=== PATIENT | female | born 1990 | race Caucasian/White ===

== ENCOUNTER → 2017-10-22 | Outpatient (REF) | payer OTHER | LOC: M SFHCWAGY 16:18 | DX: Z12.4 Encounter for screening for malignant neoplasm of cervix (principal) | CPT/HCPCS: G0123 ==

== ENCOUNTER → 2020-03-01 | Outpatient (REF) | payer OTHER ==
[2020-03-01 17:36] LABS: HEMATOCRIT 41.3 % (36.0-47.0); HEMOGLOBIN 13.6 g/dl (12.0-15.5); MEAN CORPUSCULAR HEMOGLOBIN 29.1 pg (27.0-33.0); MEAN CORPUSCULAR HGB CONC 32.9 g/dl (32.0-36.5); MEAN CORPUSCULAR VOLUME 88.4 fl (80.0-96.0); PLATELET COUNT, AUTOMATED 293 10^3/uL (150-450); RED BLOOD COUNT 4.67 10^6/uL (4.00-5.40); WHITE BLOOD COUNT 13.3 10^3/uL (4.0-10.0)
[2020-03-01 20:27] LABS: HEPATITIS C VIRUS ABY INDEX 0.1 INDEX (<0.8); HIV 1&2 SCREEN CENTAUR NEGATIVE (NEGATIVE)
== END ==
LOC: M PLALAB 15:14
PROVIDERS: ATTEND Advanced Practice Midwife
DX: Z34.01 Encounter for supervision of normal first pregnancy, first trimester (principal)

== ENCOUNTER → 2020-04-13 | Outpatient (CLI) | payer OTHER ==
--- NOTE | 2020-04-13 18:35 | REP ---
INDICATION: ANATOMY COMPARISON: None. TECHNIQUE: Transabdominal obstetrical ultrasound with color Doppler evaluation. FINDINGS: Examination demonstrates a single live intrauterine in cephalic presentation. motion is identified by technologist. Placenta is noted posterior and grade 1 without evidence for placenta previa or abruption. Amniotic fluid volume is normal. Cervix measures 4.9 cm in length and appears closed. Gestational age by LMP 19 weeks 0 days with MARCO 09/07/2020. Gestational age by current measurements 19 weeks 1 day with MARCO 09/06/2020. FHR equals 142 beats per minute. BPD: 4.6 cm 19 weeks 6 days HC: 16.4 cm 19 weeks 1 day AC: 13.0 cm 18 weeks 4 days FL: 2.9 cm at 18 weeks 6 days HL: 2.9 cm 19 weeks 3 days HC/AC: 1.26 Estimated weight 257 grams (33rdpercentile). Anatomical assessment demonstrates normal structures including cranium, choroid plexus, cavum, cerebellum/posterior fossa, nose/lips, lungs, four-chamber heart/ventricular outflow tracts, stomach, cord insertion/three-vessel cord, kidneys/bladder, spine, and extremities. IMPRESSION: Single live intrauterine in cephalic presentation demonstrating appropriate estimated weight and growth. Limited evaluation of the facial profile and diaphragm. Remainder of the anatomical assessment is complete and normal. <Electronically signed by Don Erwin > 04/13/20 [id number]
== END ==
LOC: M WHC 13:03
PROVIDERS: ATTEND Advanced Practice Midwife
DX: Z34.02 Encounter for supervision of normal first pregnancy, second trimester (principal); Z3A.19 19 weeks gestation of pregnancy

== ENCOUNTER → 2020-05-18 | Outpatient (CLI) | payer OTHER ==
--- NOTE | 2020-05-18 16:25 | REP ---
INDICATION: F/U ANATOMY/MARCO 09/07/20 COMPARISON: 04/13/2020 TECHNIQUE: Transabdominal obstetrical ultrasound with color Doppler evaluation. FINDINGS: Examination demonstrates a single live intrauterine in cephalic presentation. motion is identified by technologist. Placenta is noted posterior and grade 0 without evidence for placenta previa or abruption. Amniotic fluid volume is normal. Cervix measures 4.0 cm in length and appears closed.. Gestational age by LMP 24 weeks 0 days with MACRO 09/07/2020. Gestational age by current measurements 24 weeks 1 day with MARCO 09/06/2020. FHR equals 147 beats per minute. Estimated weight 622 grams (29thpercentile). Anatomical assessment demonstrates normal structures including facial profile and diaphragm. IMPRESSION: Single live intrauterine in cephalic presentation demonstrating appropriate estimated weight and growth. In conjunction with prior examination anatomical assessment is complete and normal. <Electronically signed by Don Erwin > 05/18/20 1830
== END ==
LOC: M WHC 15:31
PROVIDERS: ATTEND Advanced Practice Midwife
DX: Z36.9 Encounter for antenatal screening, unspecified (principal); Z3A.24 24 weeks gestation of pregnancy

== ENCOUNTER → 2020-06-21 | Outpatient (REF) | payer OTHER ==
[2020-06-21 15:41] LABS: HEMATOCRIT 37.3 % (36.0-47.0); MEAN CORPUSCULAR HEMOGLOBIN 28.4 pg (27.0-33.0); MEAN CORPUSCULAR HGB CONC 32.2 g/dl (32.0-36.5); MEAN CORPUSCULAR VOLUME 88.4 fl (80.0-96.0); PLATELET COUNT, AUTOMATED 210 10^3/uL (150-450); RED BLOOD COUNT 4.22 10^6/uL (4.00-5.40); WHITE BLOOD COUNT 11.6 10^3/uL (4.0-10.0)
== END ==
LOC: M PLALAB 13:16
PROVIDERS: ATTEND Advanced Practice Midwife
DX: Z36.89 Encounter for other specified antenatal screening (principal)

== ENCOUNTER → 2020-08-09 | Outpatient (REF) | payer OTHER | LOC: M SFHCWAGY 09:54 | PROVIDERS: ATTEND Advanced Practice Midwife | DX: Z36.85 Encounter for antenatal screening for Streptococcus B (principal) ==

== ENCOUNTER → 2020-08-23 | Outpatient (REF) | payer OTHER ==
[~2020-08-23] MED LIST: ACET-897 PO; FLON1SPR NARES; PRENTAB9 PO; TUMS500C PO
[2020-08-23 18:27] LABS: TOTAL PROTEIN,RANDOM URINE 21.5 MG/DL (0.0-12.0)
[2020-08-23 18:30] LABS: ALT/SGPT 25 U/L (12-78); BILIRUBIN,TOTAL 0.3 MG/DL (0.2-1.0); CREATININE FOR GFR 0.53 MG/DL (0.55-1.30); GLOMERULAR FILTRATION RATE > 60.0 (>60); LDH LACTATE DEHYDROGENASE 169 U/L (84-246); URIC ACID 4.2 MG/DL (2.6-6.0)
[2020-08-23 18:31] LABS: HEMATOCRIT 36.1 % (36.0-47.0); HEMOGLOBIN 11.8 g/dl (12.0-15.5); MEAN CORPUSCULAR HEMOGLOBIN 27.8 pg (27.0-33.0); MEAN CORPUSCULAR HGB CONC 32.7 g/dl (32.0-36.5); MEAN CORPUSCULAR VOLUME 84.9 fl (80.0-96.0); PLATELET COUNT, AUTOMATED 198 10^3/uL (150-450); RED BLOOD COUNT 4.25 10^6/uL (4.00-5.40); WHITE BLOOD COUNT 11.1 10^3/uL (4.0-10.0)
== END ==
LOC: M PLALAB 14:34
PROVIDERS: ATTEND Advanced Practice Midwife
DX: O16.3 Unspecified maternal hypertension, third trimester (principal)

== ENCOUNTER 2020-08-24 10:54 | Inpatient (IN) | payer OTHER ==
[2020-08-24] VITALS (13 sets, daily range): BP systolic 119–146; BP diastolic 61–88
[~2020-08-24] VITALS: Ht 165.1 cm; Wt 94.2 kg
[2020-08-24] MEDS ORDERED: LACTATED RINGER'S 1000 ML IV STA (11:13)
[2020-08-24] MEDS ORDERED: LIDOCAINE 1% MDV 20ML VIAL INFIL PRN (11:15)
[2020-08-24] MEDS ORDERED: CARBOPROST TROMETHAMINE 250 MCG/ML AMP IM PRN (11:15)
[2020-08-24] MEDS ORDERED: TRANEXAMIC ACID INJection 1,000 MG in NS 100 ML IV PRN (11:15)
[2020-08-24] MEDS ORDERED: OXYTOCIN DRIP 30 UNITS in IV 1 EA IV PRN (11:15)
[2020-08-24] MEDS ORDERED: TUMS500C PO (11:23)
[2020-08-24] MEDS ORDERED: ACET-897 PO (11:23)
[2020-08-24] MEDS ORDERED: FLON1SPR NARES (11:23)
[2020-08-24] MEDS ORDERED: PRENTAB9 PO (11:23)
[2020-08-24] MEDS: miSOPROStol 50MCG 1/2 TABLET PO SCH ×3 (12:18→21:19)
[2020-08-24 12:47] LABS: HEMATOCRIT 37.3 % (36.0-47.0); HEMOGLOBIN 12.2 g/dl (12.0-15.5); MEAN CORPUSCULAR HEMOGLOBIN 27.7 pg (27.0-33.0); MEAN CORPUSCULAR HGB CONC 32.7 g/dl (32.0-36.5); MEAN CORPUSCULAR VOLUME 84.6 fl (80.0-96.0); PLATELET COUNT, AUTOMATED 211 10^3/uL (150-450); RED BLOOD COUNT 4.41 10^6/uL (4.00-5.40); WHITE BLOOD COUNT 11.7 10^3/uL (4.0-10.0)
[2020-08-24 13:14] LABS: ALT/SGPT 27 U/L (12-78); BILIRUBIN,TOTAL 0.3 MG/DL (0.2-1.0); CREATININE FOR GFR 0.62 MG/DL (0.55-1.30); GLOMERULAR FILTRATION RATE > 60.0 (>60); LDH LACTATE DEHYDROGENASE 197 U/L (84-246); URIC ACID 4.3 MG/DL (2.6-6.0)
--- NOTE | 2020-08-24 19:05 | HPEPDOC ---
Obstetrical History & Physical General Date of Admission Aug 24, 2020 at 10:54 Primary Care Physician: CAROLINE LANIER CNM History of Present Illness Masha is a 30-year-old female who is a at 38 weeks gestation with an MARCO of 09/07/20 based off of her LMP and consistent with her first trimester ultraso und. Her has been complicated by GHTN, which was diagnosed today. After collaborating with Dr. Jessica the plan was for the patient to go to L&D for induction of labor. She currently denies any preeclamptic symptoms. She reports active movement and denies leaking of fluid, vaginal bleeding or contractions. 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 History: No pertinent history Past Medical History Medical History Hx of shingles Surgical History: Denies/None Family History Significant Family History: Diabetes, Heart disease, Hypertension Social History Marital Status: Family situation: Spouse/partner home Psychosocial History: No pertinent psych hx * Smoker: non-smoker Alcohol: Denies Drugs: denies Abuse Violence Screening Have you been hit/kicked/slapp: No Have you been sexually assault: No Imunizations Tdap status: current Influenza Status: current Allergies Coded Allergies: amoxicillin (Verified Allergy, Mild, hives, 08/24/20) Medications Scheduled Calcium Carbonate (Tums) 200 Mg Tab.chew, 2 TAB PO QID for cough and congestion Fluticasone Propionate (Flonase Allergy Relief) 9.9 Ml [place].susp, 2 SPRAY NARES DAILY No.137/Iron/Folic Acd ( Vitamin Tablet) 1 Each Tablet, 1 TAB PO DAILY Miscellaneous Medications Acetaminophen (Tylenol Extra Strength) 500 Mg Tablet, 500 MG PO Physical Examination Physical Examination GENERAL: Alert and oriented times three. BREAST: . ABDOMEN: Gravid and non-tender to touch. FETUS: Is vertex (VTX) by sterile vaginal examination (SVE), fetus is vertex (VTX) by Waqar. LUNGS: Clear to auscultation (CTA). EXTREMITIES: Generalized edema. No clonus. Deep tendon reflexes (DTRs) + 2. Vital Signs/I&O Vital Signs Date Time Temp Pulse Resp B/P (MAP) Pulse Ox O2 Delivery O2 Flow Rate FiO2 08/24/20 18:14 97.3 82 18 146/72 (96) Laboratory Data 24H LABS Laboratory Tests 2 08/24/20 10:58: Serology Scanned Report Hepatitis B Testing 08/24/20 12:14: Nucleated Red Blood Cells % (auto) 0.0, Glomerular Filtration Rate > 60.0, Uric Acid 4.3, Total Bilirubin 0.3, Aspartate Amino Transf (AST/SGOT) 17, Alanine Aminotransferase (ALT/SGPT) 27, Lactate Dehydrogenase 197, Syphilis Serology NONREACTIVE CBC/BMP Laboratory Tests 08/24/20 12:14 Urine Culture: No Growth Pertinent Laboratoy Data Blood Type: AB+ RBC Antibody Screen: Negative HIV: Negative Hepatitis B: Negative Hepatitis C: Negative Rapid Plasma Reagin: Nonreactive Rubella: Immune Chlamydia/Gonorrhea: Negative Group B Streptococcus: Negative Glucose Tolerance Test: 95 Anatomy Ultrasound Ultrasound Date: May 18, 2020 Placenta Location: Posterior Normal Anatomy: Yes Placenta Previa: No Vaginal Examination Dilation: 2cm (2-3 cm) Effacement: 60% Station: -2 Cervical Consistency: Soft Cervical Position: Middle Presentation: Cephalic presentation Assessment Heart Rate (FHR): 130 Variability: Moderate Accelerations: Positive Decelerations: None Tocometer Contractions: Yes Frequency: irregular Multi-drug resistant Organism: No history of MDRO Assessment/Plan Assessment IUP at 38 weeks gestation GHTN Category I FHR tracing GBS negative Plan Admit to L&D. OOB ad rebekah. Diet: regular then switch to clears when IV Pitocin is started. . Group B Streptococcus (GBS) negative. Labs and intravenous (IV) per unit protocol. Counseled on Cytotec, kumar bulb and IV Pitocin for induction of labor. Lactated Ringers (LR): Bolus 500 mL prior to epidural, then at 125 mL/hr. Start Cytotec per order. Anticipate cervical ripening. C-S as appropriate. CAROLINE LANIER Aug 24, 2020 19:05
[2020-08-25] VITALS (59 sets, daily range): BP systolic 102–144; BP diastolic 49–85
--- NOTE | 2020-08-25 01:28 | IPNPDOC ---
Obstetrical Progress Note Date of Service Aug 25, 2020 Subjective Patient reports she is feeling her contractions. Objective Vital Signs Date Time Temp Pulse Resp B/P (MAP) Pulse Ox O2 Delivery O2 Flow Rate FiO2 08/24/20 23:21 73 18 119/61 (80) 08/24/20 19:21 98.7 Assessment Heart Rate (FHR): 130 Variability: Moderate Accelerations: Positive Decelerations: None Heart Rate Tracing: Category I Tocometer Contractions: Yes Frequency: regular Sterile Vaginal Examination Dilation: 4 cm Effacement (%): other (75%) Station: -2 Cervical Consistency: Soft Cervical Position: Middle Postion/Presentation: Cephalic presentation Assessment and Plan Age: 30 : 1 Term: 0 Pre-term: 0 Abortions: 0 Livin EGA at Admission: 38.0 Weeks & Days 38.1 today Status: Reassuring Group B Streptococcus: Negative Anticipate: Vaginal Delivery Additional Comments Repeat CBC ordered. IV Pitocin to be started per order after counseling patient. She may get epidural if she desires. CAROLINE LANIER CNM Aug 25, 2020 01:28
[2020-08-25] MEDS ORDERED: LR 1,000 ML IV SCH (01:30)
[2020-08-25] MEDS ORDERED: OXYTOCIN DRIP 30 UNITS in IV 1 EA IV SCH (01:30)
[2020-08-25 01:58] LABS: HEMATOCRIT 37.4 % (36.0-47.0); HEMOGLOBIN 12.1 g/dl (12.0-15.5); MEAN CORPUSCULAR HEMOGLOBIN 27.3 pg (27.0-33.0); MEAN CORPUSCULAR HGB CONC 32.4 g/dl (32.0-36.5); MEAN CORPUSCULAR VOLUME 84.4 fl (80.0-96.0); PLATELET COUNT, AUTOMATED 195 10^3/uL (150-450); RED BLOOD COUNT 4.43 10^6/uL (4.00-5.40); WHITE BLOOD COUNT 13.7 10^3/uL (4.0-10.0)
[2020-08-25] MEDS ORDERED: FENTANYL 2MCG/ML ROPIVACAINE 0.2% IN 0.9% NACL 100ML IVBAG As Ordered ONE (06:37)
[2020-08-25] MEDS ORDERED: NALOXONE INJ 0.4MG/1ML VIAL (J2310 PER 1MG) IV PRN (07:10)
[2020-08-25] MEDS ORDERED: REFRIGERATOR IV KEYS XX PRN (07:10)
[2020-08-25] MEDS ORDERED: LACTATED RINGER'S 1000 ML IV PRN (07:10)
[2020-08-25] MEDS ORDERED: diphenhydrAMINE 50MG/ML VIAL (J1200) IV PRN (07:10)
[2020-08-25] MEDS ORDERED: ePHEDrine SULFATE 25 MG/5 ML(5MG/ML) SYRINGE IV PRN (07:10)
[2020-08-25] MEDS ORDERED: EPIDURAL COMMENT XX SCH (07:10)
[2020-08-25] MEDS ORDERED: EPIDURAL/PCA KEYS XX PRN (07:10)
[2020-08-25] MEDS ORDERED: ONDANSETRON 4MG/2ML VIAL IV PRN (07:10)
[2020-08-25] MEDS: FENTANYL/ROPIVACAINE/NACL BAG 100 ML EPIDURAL SCH ×2 (07:19→13:43)
--- NOTE | 2020-08-25 12:05 | IPNPDOC ---
Obstetrical Progress Note Date of Service Aug 25, 2020 Subjective Patient reports she is comfortable with her epidural. Objective Vital Signs Date Time Temp Pulse Resp B/P (MAP) Pulse Ox O2 Delivery O2 Flow Rate FiO2 08/25/20 09:52 69 117/64 (81) 08/25/20 08:35 97.0 16 Assessment Heart Rate (FHR): 120 Variability: Moderate Accelerations: Positive Decelerations: None Heart Rate Tracing: Category I Tocometer Contractions: Yes Frequency: regular Sterile Vaginal Examination Dilation: 5 cm Effacement (%): 80% Station: 0 Cervical Consistency: Soft Cervical Position: Anterior Postion/Presentation: Cephalic presentation Assessment and Plan Age: 30 : 1 Term: 0 Pre-term: 0 Abortions: 0 Livin EGA at Admission: 38 Weeks & Days 38.1 weeks Status: Reassuring Group B Streptococcus: Negative Anticipate: Vaginal Delivery Additional Comments IV Pitocin at 8 mu/min. AROM done with a moderate amount of clear fluid noted. CAROLINE LANIER CNM Aug 25, 2020 12:05
--- NOTE | 2020-08-25 18:31 | IPNPDOC ---
Obstetrical Progress Note Date of Service Aug 25, 2020 Subjective Patient reports she is feeling increasing pressure. Objective Vital Signs Date Time Temp Pulse Resp B/P (MAP) Pulse Ox O2 Delivery O2 Flow Rate FiO2 08/25/20 16:38 98.8 85 15 123/62 (82) Assessment Heart Rate (FHR): 130 Variability: Moderate Accelerations: Positive Decelerations: None Heart Rate Tracing: Category I Tocometer Contractions: Yes Frequency: regular Sterile Vaginal Examination Dilation: 9 cm (anterior lip) Effacement (%): 100% Station: 0 Postion/Presentation: Cephalic presentation Assessment and Plan Age: 30 : 1 Term: 0 Pre-term: 0 Abortions: 0 Livin EGA at Admission: 38 Weeks & Days 38.1 today Status: Reassuring Group B Streptococcus: Negative Anticipate: Vaginal Delivery Additional Comments IV Pitocin at 18 mu/min. CAROLINE LANIER CNM Aug 25, 2020 18:31
[2020-08-25] MEDS ORDERED: RHOGAM 300 MCG (1500 IU) INJ (J2790) IM SCH (21:30)
[2020-08-25] MEDS ORDERED: DOCUSATE SODIUM 100MG CAPSULE PO PRN (21:30)
[2020-08-25] MEDS ORDERED: ACETAMINOPHEN TAB 650MG DOSE (2X325MG) PO PRN (21:30)
[2020-08-25] MEDS ORDERED: DIBUCAINE 1% OINTMENT 30GM TOP PRN (21:30)
[2020-08-25] MEDS ORDERED: MEASLES,MUMPS,RUBELLA VACCINE INJ (MMR-II) (90707) SC SCH (21:30)
[2020-08-25] MEDS ORDERED: IBUPROFEN 600MG TAB PO PRN (21:30)
--- NOTE | 2020-08-25 21:46 | DNPDOC ---
[facility] Delivery Note Delivery Note DATE OF DELIVERY: 08/25/20 at 1958 PREDELIVERY DIAGNOSIS: 38-0/7 weeks' gestation and induction. POST DELIVERY DIAGNOSIS: Delivered. PROCEDURE: Spontaneous vaginal delivery. HEALTH INFORMATION MANAGER: Caroline Wynne CNM, ABBE ANESTHESIA: epidural. ESTIMATED BLOOD LOSS: 200 mL. FINDINGS: 6 pounds 14 ounces; 3130 grams; female , Score 7/8, tight cord wrapped around back of neck (not around front of neck), GHTN. DELIVERY SUMMARY: Masha is a 30-year-old female who is now a who presented to the hospital for induction of labor for GHTN. She received 3 doses of Cytotec and IV Pitocin for induction. She requested an epidural for pain management. The patient progressed to fully dilated at 1834 and pushed to a living female in the OA position with restitution to LOT. A tight cord was noted and not able to be reduced. The anterior shoulder delivered with ease and the corpus was delivered via [place]. The baby was placed skin to skin. The cord was clamped after 1 minute and cut by the FOB. The baby was taken to the warmer for evaluation as she wasn't aggressively crying with stimulation. She wasn't gasping for air and after 5 minutes her pulse ox recorded at 99% without oxygen. The placenta delivered spontaneously and intact at 2004. Uterine hemostasis was achieved via rapid infusion of IV Pitocin and fundal massage. The vagina, cervix, and perineum was inspected and found to have a 2nd degree perineal laceration that was repaired with a 3.[address]-1. Both mom and baby are in stable condition. All counts of instruments and sponges are correct. They plan on naming her Bradley and Masha plans on . CAROLINE WYNNE CNM Aug 25, 2020 21:46
[2020-08-26] MEDS: IBUPROFEN 800 MG TAB PO PRN ×3 (00:08→16:50)
[2020-08-26 00:12] VITALS: BP 121/66
[2020-08-26] MEDS: ACETAMINOPHEN 500 MG TAB PO PRN ×3 (00:43→21:46)
[2020-08-26 06:16] VITALS: BP 146/83
[2020-08-26] MEDS: PRENATAL VITAMINS CHEWABLE TABLET PO SCH (08:16)
[2020-08-26] MEDS: CALCIUM CARBONATE 500 MG CHEW U/D PO PRN (17:31)
[2020-08-26 18:00] VITALS: BP 128/82
[2020-08-27] MEDS: IBUPROFEN 800 MG TAB PO PRN ×3 (00:54→19:19)
[2020-08-27] MEDS: CALCIUM CARBONATE 500 MG CHEW U/D PO PRN (00:54)
[2020-08-27] MEDS: ACETAMINOPHEN 500 MG TAB PO PRN ×2 (05:59→16:37)
[2020-08-27 06:00] VITALS: BP 134/99
[2020-08-27 08:44] LABS: HEMATOCRIT 35.2 % (36.0-47.0); HEMOGLOBIN 11.1 g/dl (12.0-15.5); MEAN CORPUSCULAR HEMOGLOBIN 27.2 pg (27.0-33.0); MEAN CORPUSCULAR HGB CONC 31.5 g/dl (32.0-36.5); MEAN CORPUSCULAR VOLUME 86.3 fl (80.0-96.0); PLATELET COUNT, AUTOMATED 177 10^3/uL (150-450); RED BLOOD COUNT 4.08 10^6/uL (4.00-5.40); WHITE BLOOD COUNT 13.7 10^3/uL (4.0-10.0)
[2020-08-27] MEDS: PRENATAL VITAMINS CHEWABLE TABLET PO SCH (08:44)
[2020-08-27 09:13] LABS: ALT/SGPT 24 U/L (12-78); BILIRUBIN,TOTAL 0.2 MG/DL (0.2-1.0); GLOMERULAR FILTRATION RATE > 60.0 (>60); LDH LACTATE DEHYDROGENASE 273 U/L (84-246); URIC ACID 3.6 MG/DL (2.6-6.0)
--- NOTE | 2020-08-27 12:46 | IPNPDOC ---
Progress Note Date of Service: Aug 27, 2020 Day#: 2 Progress Note SUBJECT: Masha is a 30-year-old female who is now a who presented to L&D for induction of labor due to GHTN. Her baby was transferred to the NICU for TTN. She denies preeclamptic symptoms. She had been ambulating without difficulty and maintaining a regular diet. She is also voiding without any issue. She has been attempting to breastfeed in the NICU. Will get help from nurse today . OBJECTIVE: VITAL SIGNS: Within normal limits, afebrile. Alert and oriented times three. Breath sounds clear to auscultation. Abdomen: Fundus firm at U-2. Soft, NTTP. Minimal lochia. ASSESSMENT: Day 2 , GHTN PLAN: 1. Continue supportive nursing care. 2. Preeclamptic labs ordered. 3. Anticipate discharge to home tomorrow. 4. Continue to monitor BPs. VS, I&O, 24H, Fishbone Vital Signs/I&O Vital Signs Date Time Temp Pulse Resp B/P (MAP) Pulse Ox O2 Delivery O2 Flow Rate FiO2 08/27/20 06:00 97.4 70 16 134/99 (111) 100 Room Air Laboratory Data 24H LABS Laboratory Tests 2 08/27/20 07:58: Nucleated Red Blood Cells % (auto) 0.0, Glomerular Filtration Rate > 60.0, Uric Acid 3.6, Total Bilirubin 0.2, Aspartate Amino Transf (AST/SGOT) 27, Alanine Aminotransferase (ALT/SGPT) 24, Lactate Dehydrogenase 273H CBC/BMP Laboratory Tests 08/27/20 07:58 CAROLINE LANIER CNM Aug 27, 2020 12:46
[2020-08-27 18:01] VITALS: BP 142/82
[2020-08-27 22:00] VITALS: BP 140/85
[2020-08-28] MEDS: ACETAMINOPHEN 500 MG TAB PO PRN (00:51)
[2020-08-28 02:00] VITALS: BP 131/81
[2020-08-28] MEDS: IBUPROFEN 800 MG TAB PO PRN (03:57)
[2020-08-28 06:00] VITALS: BP 137/79
[2020-08-28] MEDS ORDERED: ACET-683 PO (09:01)
[2020-08-28] MEDS ORDERED: IBUP80TA PO (09:01)
== END 2020-08-28 10:25 | disposition home or self-care (01) | DRG 807 ==
LOC: M LDI 10:54 → M OBS 08-25 23:44
PROVIDERS: ADMIT Advanced Practice Midwife; ATTEND Advanced Practice Midwife
PROC: 3E033VJ Introduction of Other Hormone into Peripheral Vein, Percutaneous Approach (ICD-10-PCS; 2020-08-24)
PROC: 10E0XZZ Delivery of Products of Conception, External Approach (ICD-10-PCS; principal; 2020-08-25)
PROC: 0KQM0ZZ Repair Perineum Muscle, Open Approach (ICD-10-PCS; 2020-08-25)
PROC: 10907ZC Drainage of Amniotic Fluid, Therapeutic from Products of Conception, Via Natural or Artificial Opening (ICD-10-PCS; 2020-08-25)
DX: O24.420 Gestational diabetes mellitus in childbirth, diet controlled (principal); Z37.0 Single live birth; Z3A.38 38 weeks gestation of pregnancy; O69.1XX0 Labor and delivery complicated by cord around neck, with compression, not applicable or unspecified; O70.1 Second degree perineal laceration during delivery

== ENCOUNTER → 2022-07-24 | Outpatient (REF) | payer OTHER ==
[~2022-07-24] MED LIST changes: +ACET-683 PO; +IBUP80TA PO
== END ==
LOC: M SFHCWAGY 15:21
PROVIDERS: ATTEND Nurse Practitioner Family
DX: Z12.4 Encounter for screening for malignant neoplasm of cervix (principal); Z77.9 Other contact with and (suspected) exposures hazardous to health
CPT/HCPCS: 87624; G0123

== ENCOUNTER → 2023-07-15 | Outpatient (CLI) | payer OTHER ==
[2023-07-15 17:46] LABS: HEMATOCRIT 39.2 % (36.0-47.0); HEMOGLOBIN 13.3 g/dl (12.0-15.5); MEAN CORPUSCULAR HEMOGLOBIN 29.5 pg (27.0-33.0); MEAN CORPUSCULAR HGB CONC 33.9 g/dl (32.0-36.5); MEAN CORPUSCULAR VOLUME 86.9 fl (80.0-96.0); PLATELET COUNT, AUTOMATED 282 10^3/uL (150-450); RED BLOOD COUNT 4.51 10^6/uL (4.00-5.40); WHITE BLOOD COUNT 11.3 10^3/uL (4.0-10.0)
[2023-07-15 18:08] LABS: LDH LACTATE DEHYDROGENASE 167 U/L (120-246)
[2023-07-15 18:09] LABS: ALT/SGPT 17 U/L (7.0-40); AST/SGOT 16 U/L (<34); BILIRUBIN,TOTAL 0.5 MG/DL (0.3-1.2); CREATININE FOR GFR 0.59 MG/DL (0.55-1.30); GLOMERULAR FILTRATION RATE > 60.0 (>60)
[2023-07-15 18:16] LABS: TOTAL PROTEIN,RANDOM URINE 15.5 MG/DL (0.0-14.0)
[2023-07-15 18:21] LABS: CREATININE,RANDOM URINE 108.8 MG/DL
[2023-07-15 18:42] LABS: HIV 1&2 SCREEN NEGATIVE (NEGATIVE)
[2023-07-15 18:50] LABS: HEPATITIS C VIRUS ABY INDEX < 0.02 INDEX (<0.8)
[2023-07-15 21:30] LABS: GC DNA AMPLIFICATION NEGATIVE (NEGATIVE)
== END ==
LOC: M PLALAB 16:24
PROVIDERS: ATTEND Advanced Practice Midwife
DX: Z34.81 Encounter for supervision of other normal pregnancy, first trimester (principal); Z3A.00 Weeks of gestation of pregnancy not specified

== ENCOUNTER → 2023-09-02 | Outpatient (REF) | payer OTHER | LOC: M SFHCWAGY 14:54 | PROVIDERS: ATTEND Advanced Practice Midwife | DX: Z34.92 Encounter for supervision of normal pregnancy, unspecified, second trimester (principal); R05.8 Other specified cough; R53.1 Weakness ==

== ENCOUNTER → 2023-09-11 | Outpatient (CLI) | payer OTHER | LOC: M WHC 08:19 | PROVIDERS: ATTEND Advanced Practice Midwife | DX: Z34.82 Encounter for supervision of other normal pregnancy, second trimester (principal) ==

== ENCOUNTER → 2023-11-05 | Outpatient (CLI) | payer OTHER | LOC: M WHC 13:33 | PROVIDERS: ATTEND Advanced Practice Midwife | DX: Z34.82 Encounter for supervision of other normal pregnancy, second trimester (principal) ==

== ENCOUNTER → 2023-11-05 | Outpatient (CLI) | payer OTHER ==
[2023-11-05 17:55] LABS: HEMOGLOBIN 11.4 g/dl (12.0-15.5); MEAN CORPUSCULAR HEMOGLOBIN 28.2 pg (27.0-33.0); MEAN CORPUSCULAR HGB CONC 32.6 g/dl (32.0-36.5); MEAN CORPUSCULAR VOLUME 86.6 fl (80.0-96.0); PLATELET COUNT, AUTOMATED 244 10^3/uL (150-450); RED BLOOD COUNT 4.04 10^6/uL (4.00-5.40); WHITE BLOOD COUNT 12.9 10^3/uL (4.0-10.0)
[2023-11-05 18:18] LABS: GLUCOSE CHALLENGE TEST 1 HOUR 91 MG/DL (LESS THAN 140)
[2023-11-05 18:47] LABS: HIV 1&2 SCREEN NEGATIVE (NEGATIVE)
== END ==
LOC: M PLALAB 14:39
PROVIDERS: ATTEND Advanced Practice Midwife
DX: Z34.82 Encounter for supervision of other normal pregnancy, second trimester (principal)

== ENCOUNTER → 2023-12-31 | Outpatient (REF) | payer OTHER | LOC: M PLALAB 16:15 | PROVIDERS: ATTEND Advanced Practice Midwife | DX: Z36.85 Encounter for antenatal screening for Streptococcus B (principal); Z3A.36 36 weeks gestation of pregnancy ==

== ENCOUNTER 2024-01-25 08:08 | Inpatient (IN) | payer OTHER ==
[~2024-01-25] VITALS: Ht 165.1 cm; Wt 88.8 kg
[2024-01-25] VITALS (40 sets, daily range): BP systolic 99–143; BP diastolic 56–88; O2SAT 100
[2024-01-25] MEDS ORDERED: HOME MED LIST COMPLETE! XX SCH (08:35)
[2024-01-25] MEDS: LACTATED RINGER'S 1000 ML IV STA (08:49)
[2024-01-25] MEDS ORDERED: LIDOCAINE 1% MDV 20ML VIAL INFIL PRN (08:50)
[2024-01-25] MEDS ORDERED: OXYTOCIN DRIP 30 UNITS in IV 1 EA IV PRN (08:50)
[2024-01-25] MEDS ORDERED: CARBOPROST TROMETHAMINE 250 MCG/ML AMP IM PRN (08:50)
[2024-01-25 09:35] LABS: HEMATOCRIT 36.3 % (36.0-47.0); HEMOGLOBIN 11.9 g/dl (12.0-15.5); MEAN CORPUSCULAR HGB CONC 32.8 g/dl (32.0-36.5); MEAN CORPUSCULAR VOLUME 82.5 fl (80.0-96.0); PLATELET COUNT, AUTOMATED 197 10^3/uL (150-450)
[2024-01-25] MEDS: LR 1,000 ML IV SCH (09:37)
[2024-01-25] MEDS: OXYTOCIN DRIP 30 UNITS in IV 1 EA IV SCH ×2 (09:37→20:48)
[2024-01-25 10:40] LABS: HEPATITIS C VIRUS ABY INDEX < 0.02 INDEX (<0.8)
[2024-01-25] MEDS ORDERED: FENTANYL 2MCG/ML ROPIVACAINE 0.2% IN 0.9% NACL 100ML IVBAG As Ordered ONE (13:05)
[2024-01-25] MEDS ORDERED: ePHEDrine SULFATE 25 MG/5 ML(5MG/ML) SYRINGE IVP PRN (13:10)
[2024-01-25] MEDS ORDERED: **NOTE PATIENT COMMENT** MISC XX SCH (13:10)
[2024-01-25] MEDS ORDERED: NALOXONE INJ 0.4MG/1ML VIAL IV PRN ×3 (13:10)
[2024-01-25] MEDS ORDERED: SLF 3 ML SYR IV SCH (13:10)
[2024-01-25] MEDS ORDERED: diphenhydrAMINE 50MG/ML VIAL IV PRN ×2 (13:10)
[2024-01-25] MEDS ORDERED: METOCLOPRAMIDE INJ 10MG/2ML VIAL IV PRN (13:10)
[2024-01-25] MEDS ORDERED: EPIDURAL/PCA KEYS XX PRN (13:10)
[2024-01-25] MEDS ORDERED: LR 500 ML IV PRN (13:10)
[2024-01-25] MEDS: FENTANYL/ROPIVACAINE/NACL BAG 100 ML EPIDURAL SCH (13:33)
[2024-01-25] MEDS ORDERED: ANUSOL HC CREAM 30GM TOP PRN (19:00)
[2024-01-25] MEDS ORDERED: DOCUSATE SODIUM 100MG CAPSULE PO PRN (19:00)
[2024-01-25] MEDS ORDERED: MOM 30ML SUSPENSION UDC PO PRN (19:00)
[2024-01-25] MEDS ORDERED: RHOGAM 300MCG (1500IU) INJ IM SCH (19:00)
[2024-01-25] MEDS: METHYLERGONOVINE MALEATE 0.2MG/ML 1ML VIAL IM PRN (19:51)
[2024-01-25] MEDS ORDERED: OXYTOCIN 30UNITS IN 0.9% NaCl 500ML IV BAG As Ordered ONE (19:55)
[2024-01-25] MEDS: TRANEXAMIC ACID INJection 1,000 MG in NS 100 ML IV PRN (20:02)
[2024-01-25] MEDS: ONDANSETRON 4MG 2ML VIAL IV PRN (20:18)
[2024-01-25] MEDS: ceFAZolin SOD 2 GM in IV 1 EA IV ONE (21:02)
[2024-01-25] MEDS ORDERED: AMPICILLIN SOD/SULBACTAM SOD 3 GM in SODIUM CHLORIDE 0.9% 100ML ADD 100 ML IV ONE (22:00)
[2024-01-25] MEDS: ACETAMINOPHEN 325 MG TAB PO PRN (23:30)
[2024-01-25] MEDS: DIBUCAINE 1% OINTMENT 30GM TOP PRN (23:31)
[2024-01-26] MEDS: IBUPROFEN 800 MG TAB PO PRN (00:54)
[2024-01-26 06:00] VITALS: BP 111/54; O2SAT 98
[2024-01-26 06:31] LABS: MEAN CORPUSCULAR HEMOGLOBIN 26.9 pg (27.0-33.0); MEAN CORPUSCULAR HGB CONC 32.7 g/dl (32.0-36.5); MEAN CORPUSCULAR VOLUME 82.5 fl (80.0-96.0); PLATELET COUNT, AUTOMATED 147 10^3/uL (150-450); WHITE BLOOD COUNT 15.2 10^3/uL (4.0-10.0)
[2024-01-26] MEDS: ACETAMINOPHEN 500 MG TAB PO PRN (06:39)
[2024-01-26 06:42] LABS: HEMATOCRIT 29.7 % (36.0-47.0); HEMOGLOBIN 9.7 g/dl (12.0-15.5)
[2024-01-26] MEDS: PRENATAL VITAMINS CHEWABLE TABLET PO SCH (08:25)
[2024-01-26] MEDS: IBUPROFEN 600MG TAB PO PRN (16:25)
[2024-01-26 18:00] VITALS: BP 122/78; O2SAT 98
[2024-01-27 06:00] VITALS: BP 118/79; O2SAT 100
[2024-01-27] MEDS: FLUZONE VACCINE TRIVALENT PF(2024-25) 0.5ML SYRINGE IM.IMMUN ONE (07:52)
[2024-01-27] MEDS: MEASLES,MUMPS,RUBELLA VACCINE INJ (MMR-II) SC.IMMUN ONE (09:00)
== END 2024-01-27 12:43 | disposition home or self-care (01) | DRG 806 ==
LOC: M LDI 08:08 → M OBS 01-26 02:20
PROVIDERS: ADMIT Advanced Practice Midwife; ATTEND Advanced Practice Midwife
PROC: 10E0XZZ Delivery of Products of Conception, External Approach (ICD-10-PCS; principal; 2024-01-25)
PROC: 0HQ9XZZ Repair Perineum Skin, External Approach (ICD-10-PCS; 2024-01-25)
PROC: 10907ZC Drainage of Amniotic Fluid, Therapeutic from Products of Conception, Via Natural or Artificial Opening (ICD-10-PCS; 2024-01-25)
PROC: 3E033VJ Introduction of Other Hormone into Peripheral Vein, Percutaneous Approach (ICD-10-PCS; 2024-01-25)
DX: O70.0 First degree perineal laceration during delivery (principal); Z37.0 Single live birth; O72.2 Delayed and secondary postpartum hemorrhage; Z3A.39 39 weeks gestation of pregnancy; N89.8 Other specified noninflammatory disorders of vagina; O26.899 Other specified pregnancy related conditions, unspecified trimester

== ENCOUNTER → 2025-02-14 | Outpatient (REF) | payer OTHER ==
[2025-02-14 18:20] LABS: RSV AMPLIFICATION NEGATIVE (NEGATIVE)
== END ==
LOC: M LAB REF 17:12
PROVIDERS: ATTEND Nurse Practitioner Adult Health
DX: J02.9 Acute pharyngitis, unspecified (principal)